=== PATIENT | male | born 1995 ===

== ENCOUNTER 2016-04-10 23:12 | Emergency (ER) | payer BC ==
[2016-04-10] MEDS ORDERED: NS 0.9% 1000 ML* 1,000 ML IV ONE (23:14)
[2016-04-10] MEDS ORDERED: Acetaminophen TAB* 325 MG PO ONE (23:14)
[2016-04-10] MEDS ORDERED: Ketorolac INJ* 30 MG/ML 1 ML VIAL IV PUSH ONE (23:15)
--- NOTE | 2016-04-10 23:18 | ED ---
gris Griffin Timothy, scribed for Artemio Dickens MD on 04/10/16 at 2317 . Back Pain - HPI Summary HPI Summary: Berto Lowery is a 20 yo male presenting to [facility] with 4/10 pain in his lower back, radiating to his hips, lightheadedness, dizziness for the past 2 hours. He states he has been on an empty stomach the past few hours. He also c/ o of body aches. He denies any pertinent MHx. - History of Current Complaint Stated Complaint: FLU LIKE SYMPTOMS Time Seen by Provider: 04/10/16 23:14 Hx Obtained From: Patient Onset/Duration: Sudden Onset, Lasting Hours, Still Present Onset/Duration: Started Hours Ago, Still Present Timing: Constant Back Pain Location: Is Discrete @ - lower back Severity Initially: Moderate Severity Currently: Moderate Pain Scale Used: 0-10 Numeric Associated Signs And Symptoms: Positive: Other - lightheadedness, dizziness - Allergies/Home Medications Allergies/Adverse Reactions: Allergies Allergy/AdvReac Type Severity Reaction Status Date / Time Amoxicillin Allergy Unknown Verified 04/11/16 00:05 Reaction Details Tobramycin Allergy Unknown Verified 04/11/16 00:05 Reaction Details Review of Systems Constitutional: Negative Eyes: Negative ENT: Negative Cardiovascular: Negative Respiratory: Negative Gastrointestinal: Negative Genitourinary: Negative Musculoskeletal: Other - lower back pain Positive: Myalgia Skin: Negative Neurological: Negative Psychological: Normal All Other Systems Reviewed And Are Negative: Yes Physical Exam Triage Information Reviewed: Yes Vital Signs Reviewed: Yes Appearance: Positive: Well-Appearing, No Pain Distress Skin: Positive: Warm Head/Face: Positive: Normal Head/Face Inspection Eyes: Positive: EDOUARD ENT: Positive: Pharynx normal, TMs normal Neck: Positive: Supple Respiratory/Lung Sounds: Positive: Clear to Auscultation, Breath Sounds Present Cardiovascular: Positive: RRR Abdomen Description: Positive: Nontender, Soft Bowel Sounds: Positive: Present Musculoskeletal: Positive: Strength/ROM Intact Neurological: Positive: Sensory/Motor Intact Diagnostics - Laboratory Result Diagrams: 04/10/16 23:58 04/10/16 23:58 Lab Statement: Any lab studies that have been ordered have been reviewed, and results considered in the medical decision making process. Re-Evaluation - Re-Evaluation First Eval Re-Evaluation Time: 01:00 Change: Improved Back Pain Course/Dx - Course Assessment/Plan: Berto Lowery is a 20 yo male presenting to [facility] with ?/ 10 pain in his lower back, lightheadedness, and dizziness. After clinical examination and positive group A rapid influenza test, he will be dischaged home with influenza and appropriate instructions. - Diagnoses Provider Diagnoses: Influenza A Discharge - Discharge Plan Condition: Stable Disposition: HOME Prescriptions: Oseltamivir CAP* [Tamiflu CAP*] 75 mg PO BID #10 cap Patient Education Materials: Influenza (ED) Referrals: [facility] [Primary Care Provider] - 2 Days Additional Instructions: Please follow up with your primary care physician regarding you visit to the emergency department. Return to the Emergency Department with any new or recurring symptoms. The documentation as recorded by the gris marie Timothy accurately reflects the service I personally performed and the decisions made by me, Artemio Dickens MD.
[2016-04-11 00:30] LABS: Hematocrit 46 % (42-52); Hemoglobin 15.6 g/dl (14.0-18.0); Mean Corpuscular HGB Conc 34 g/dl (31-36); Mean Corpuscular Hemoglobin 29 pg (27-31); Mean Corpuscular Volume 85 fL (80-94); Mean Platelet Volume 8 um3 (7.4-10.4); Red Blood Count 5.42 10^6/ul (4.0-5.4); Red Cell Distribution Width 13 % (10.5-15); White Blood Count 7.2 10^3/ul (3.5-10.8)
[2016-04-11 00:41] LABS: Albumin 4.5 g/dL (3.2-5.2); BUN/Creatinine Ratio 10.3 (8-20); Calcium 9.6 mg/dL (8.6-10.3); EGFR African American 145.4 (>60); Globulin 2.7 g/dL (2-4); Magnesium 1.7 mg/dL (1.9-2.7); Potassium 3.6 mmol/L (3.5-5.0); Total Bilirubin 0.8 mg/dL (0.2-1.0); Total Protein 7.2 g/dL (6.4-8.9)
[2016-04-11] MEDS ORDERED: Oseltamivir CAP* 75 MG PO ONE (00:53)
[2016-04-11 02:04] VITALS: BP 113/56
== END 2016-04-11 01:59 | disposition home or self-care (01) ==
LOC: ED 23:12
DX: J09.X2 Influenza due to identified novel influenza A virus with other respiratory manifestations (principal); M54.5 Low back pain; R42 Dizziness and giddiness
CPT/HCPCS: 36415; 80053; 83735; 85025; 87502; 96374; 99284; A9270-GY; J1885